=== PATIENT | female | born 1955 ===

== ENCOUNTER 2017-10-13 15:35 | Emergency (ER) | payer BC, OTHER ==
[2017-10-13 16:16] VITALS: BP 143/84; PULSE 81; RESP 20; TEMP 98; O2SAT 99
[2017-10-13] MEDS ORDERED: Lidocaine 5% Patch TD STA (16:57)
--- NOTE | 2017-10-13 16:59 | C.PDOC ---
History Of Present Illness 61 year old female presents to the ER with a complaint of left chest wall, shoulder, and upper back pain for the past 2 weeks. Patient states the pain is constant and not associated with any movement. Denies trauma, SOB, dizziness, nausea, vomiting, rash, or fever. L CHEST WALL, SHOULDER, UPPER BACK PAIN X 2 WEEKS. NO TRAUMA. CONSTANT. NO ASSOC W MOVEMENT. NO ASSOC SOB, DIZZY, NV. NO RASH, FEVER EXAM MILD DIST NONTOXIC CHEST WALL GEN TEND L, ABOVE BREAST. NO BREAST TEND, SWELL. BACK TEND L UPPER BACK NO SPASM AROM WO DIFF EXT L SHOULDER AROM WO DIFF NO DEFORM NONTEND SKIN NO RASH, ERYTHEMA REMAINDER NEG Time Seen by Provider: 10/13/17 16:34 Chief Complaint (Nursing): Breast Problem History Per: Patient History/Exam Limitations: no limitations Onset/Duration Of Symptoms: Days Current Symptoms Are (Timing): Still Present Recent travel outside of the [place]: No Past Medical History Reviewed: Historical Data, Nursing Documentation, Vital Signs Vital Signs: Last Vital Signs Temp 98 F 10/13/17 16:14 Pulse 81 10/13/17 16:14 Resp 20 10/13/17 16:14 BP 143/84 10/13/17 16:14 Pulse Ox 99 10/13/17 17:19 - Medical History PMH: Arthritis, Gastritis, HTN, Hypercholesterolemia Family History: States: Unknown Family Hx - Social History Hx Tobacco Use: No Hx Alcohol Use: No Hx Substance Use: No - Immunization History Hx Tetanus Toxoid Vaccination: No Hx Influenza Vaccination: No Hx Pneumococcal Vaccination: No Review Of Systems Except As Marked, All Systems Reviewed And Found Negative. Respiratory: Negative for: Shortness of Breath Gastrointestinal: Negative for: Nausea, Vomiting, Abdominal Pain Musculoskeletal: Positive for: Shoulder Pain (Left), Back Pain (Left upper), Other (Left chest wall) Skin: Negative for: Rash Neurological: Negative for: Weakness, Numbness, Dizziness Physical Exam - Physical Exam Appears: Non-toxic, Other (Mild distress) Skin: Normal Color, Warm, Dry, No Rash, No Other (Erythema) Head: Atraumatic, Normacephalic Eye(s): bilateral: Normal Inspection Oral Mucosa: Moist Neck: Normal, Supple Chest: Symmetrical, Tenderness (General left sided), Other (No breast swelling or tenderness) Cardiovascular: Rhythm Regular Respiratory: Normal Breath Sounds, No Rales, No Rhonchi, No Wheezing Back: No Vertebral Tenderness, No Muscle Spasm, Paraspinal Tenderness (Left upper back), Other (ROM without difficulty) Extremity: Normal ROM (x4), No Tenderness, No Deformity Pulses: Left Radial: Normal, Right Radial: Normal Neurological/Psych: Oriented x3, Normal Speech, Normal Motor, Normal Sensation ED Course And Treatment ECG: Interpreted By Me, Viewed By Me ECG Rhythm: Sinus Rhythm ECG Interpretation: Normal Rate From EC O2 Sat by Pulse Oximetry: 99 (Room air) Pulse Ox Interpretation: Normal - Radiology CXR: Interpreted by Me CXR Interpretation: Yes: No Acute Disease Medical Decision Making Medical Decision Making: Plan: * EKG * CXR * Lidoderm * Ultram Disposition Counseled Patient/Family Regarding: Studies Performed, Diagnosis, Need For Followup, Rx Given - Disposition Referrals: YOUR,PMD [Other] Disposition: HOME/ ROUTINE Disposition Time: 17:27 Condition: IMPROVED Additional Instructions: APLICA PARCHE AL AISHA AFECTADA. MAX 3 PARCHES A LA VEZ. RETIRE EL PATCH 12 HORAS DESPUS DE LA APLICACIN INICIAL. ALTERNATIVAS 12 HORAS ACTIVADAS, 12 HORAS DESACTIVADAS. Prescriptions: Lidocaine 5% [Lidoderm] 1 ea TD PRN PRN #10 patch PRN Reason: Pain, Moderate (4-7) Naproxen [Naprosyn] 1 tab PO BID PRN #25 tab PRN Reason: Pain Tramadol HCl [Ultram] 50 mg PO QID #20 tab Instructions: Chest Wall Pain (ED) Forms: [facility] (Belarusian) Print Language: ROMANSH - Clinical Impression Clinical Impression: Pain of breast, Chest wall pain, Back pain - Scribe Statement The provider has reviewed the documentation as recorded by the Scribe Cecil Rodriguez All medical record entries made by the Scribe were at my direction and personally dictated by me. I have reviewed the chart and agree that the record accurately reflects my personal performance of the history, physical exam, medical decision making, and the department course for this patient. I have also personally directed, reviewed, and agree with the discharge instructions and disposition.
[2017-10-13] MEDS ORDERED: Lidocaine 5% Patch TD ONE (17:24)
--- NOTE | 2017-10-13 17:54 | RAD ---
HISTORY: CHEST AND BACK PAIN COMPARISON: Chest/right ribs x-ray performed 11/22/15 TECHNIQUE: Chest PA and lateral FINDINGS: LUNGS: Biapical pleural thickening. Minimal left basilar atelectasis. Please note that chest x-ray has limited sensitivity for the detection of pulmonary masses. PLEURA: No significant pleural effusion identified. No definite pneumothorax . CARDIOVASCULAR: Heart size appears within normal limits. OSSEOUS STRUCTURES: Mild degenerative changes. VISUALIZED UPPER ABDOMEN: Unremarkable. OTHER FINDINGS: None. IMPRESSION: Biapical pleural thickening. Minimal left basilar atelectasis.
--- NOTE | 2017-10-15 15:15 | CARD ---
APPROVED REPORT EKG Measurement Heart [id number] <Conclusion> Normal sinus rhythm Normal ECG
== END 2017-10-13 17:47 | disposition home or self-care (01) ==
LOC: C.ER 15:35
DX: N64.4 Mastodynia (principal); R07.89 Other chest pain; M54.89 Other dorsalgia

== ENCOUNTER 2018-11-28 18:54 | Emergency (ER) | payer OTHER ==
[2018-11-28 19:23] VITALS: BP 114/62; PULSE 79; RESP 16; TEMP 98.8; O2SAT 97
--- NOTE | 2018-11-28 20:21 | C.PDOC ---
History Of Present Illness 62 y/o female presents to the ED complaining of generalized itchiness for 1 month. Patient believes she may have had allergic reaction to possible Dove bath wash, that she thought was a lotion and was using daily. She discontinued use 1 week ago. Patient has tried taking Benadryl at home with minimal relief. Otherwise she denies any new medications, foods, or other possible allergen exposure. Patient has no skin rash, only complains of itching. Otherwise she denies tongue/lip swelling, chest pain, SOB, fever, chills, nausea, or vomiting. Time Seen by Provider: 11/28/18 20:09 Chief Complaint (Nursing): Medical Clearance History Per: Patient History/Exam Limitations: no limitations Onset/Duration Of Symptoms: Days Current Symptoms Are (Timing): Still Present Past Medical History Reviewed: Historical Data, Nursing Documentation, Vital Signs Vital Signs: Last Vital Signs Temp 98.8 F 11/28/18 19:15 Pulse 79 11/28/18 19:15 Resp 16 11/28/18 19:15 BP 114/62 11/28/18 19:15 Pulse Ox 97 11/28/18 19:15 - Medical History PMH: Arthritis, Gastritis, HTN, Hypercholesterolemia, Osteoporosis Family History: States: Unknown Family Hx - Social History Hx Tobacco Use: No Hx Alcohol Use: No Hx Substance Use: No - Immunization History Hx Tetanus Toxoid Vaccination: No Hx Influenza Vaccination: Yes Hx Pneumococcal Vaccination: Yes Review Of Systems Constitutional: Negative for: Fever, Chills Eyes: Negative for: Vision Change ENT: Negative for: Mouth Swelling, Throat Swelling Cardiovascular: Negative for: Chest Pain, Palpitations Respiratory: Negative for: Shortness of Breath, Wheezing Gastrointestinal: Negative for: Nausea, Vomiting Skin: Positive for: Other (diffuse itchiness). Negative for: Rash Neurological: Negative for: Weakness Physical Exam - Physical Exam Appears: Non-toxic, No Acute Distress, Other (Actively itching herself) Skin: Warm, Dry, No Rash, Other (+ scattered excoriations throughout) Head: Atraumatic, Normacephalic Eye(s): bilateral: Normal Inspection, PERRL Ear(s): Bilateral: Normal Nose: No Discharge Oral Mucosa: Moist Tongue: Normal Appearing Lips: Normal Appearing Throat: No Erythema, No Exudate Neck: Normal ROM Chest: Symmetrical Cardiovascular: Rhythm Regular Respiratory: Normal Breath Sounds, No Accessory Muscle Use, No Wheezing Gastrointestinal/Abdominal: Soft, No Tenderness Extremity: Bilateral: Atraumatic, Normal ROM Neurological/Psych: Oriented x3, Normal Speech, Normal Motor, Normal Sensation Gait: Steady ED Course And Treatment O2 Sat by Pulse Oximetry: 97 (RA) Pulse Ox Interpretation: Normal Medical Decision Making Medical Decision Making: Impression: Generalized pruritus Plan: - 10 mg PO Decadron - 50 mg PO Benadryl - 20 mg PO Pepcid On re-evaluation patient is resting comfortably, in no acute distress. Lungs clear. No angioedema. Patient is stable for discharge home, advised to take meds as written and follow up with PMD. Disposition Counseled Patient/Family Regarding: Diagnosis, Need For Followup, Rx Given - Disposition Referrals: Anastasiia Hayward APN [Advanced Practice Nurse] - Disposition: HOME/ ROUTINE Disposition Time: 21:12 Condition: IMPROVED Additional Instructions: Continue Pepcid, Benadryl and Prednisone as prescribed Follow up with PMD in 1-2 days Return to ED if symptoms worsen Prescriptions: DiphenhydrAMINE [Benadryl] 25 mg PO BID #14 cap Famotidine [Pepcid] 20 mg PO DAILY #14 tab predniSONE [predniSONE Tab] 60 mg PO DAILY #15 tab Instructions: Itchy Skin, Allergy Skin Testing Forms: [employer] (Lebanese) Print Language: NEPALI - POA Present On Arrival: None - Clinical Impression Clinical Impression: Allergic reaction, Itchy skin - 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 - Scribe Statement The provider has reviewed the documentation as recorded by the Michelle Reyna All medical record entries made by the Scribe were at my direction and personally dictated by me. I have reviewed the chart and agree that the record accurately reflects my personal performance of the history, physical exam, medical decision making, and the department course for this patient. I have also personally directed, reviewed, and agree with the discharge instructions and disposition.
== END 2018-11-28 21:19 | disposition home or self-care (01) ==
LOC: C.ER 18:54
DX: T78.40XA Allergy, unspecified, initial encounter (principal); X58.XXXA Exposure to other specified factors, initial encounter
CPT/HCPCS: 99282; J8540